=== PATIENT | female | born 1995 | race Caucasian/White ===

== ENCOUNTER 2024-12-25 06:19 | Outpatient (CLI) | payer OTHER ==
[~2024-12-25] VITALS: Ht 165.1 cm; Wt 82.0 kg
[2024-12-25] MEDS ORDERED: OVAS1POW PO (06:36)
[2024-12-25] MEDS ORDERED: PRENTAB9 PO (06:36)
[2024-12-25 06:39] VITALS: BP 132/83
[2024-12-25 08:45] LABS: APPEARANCE, URINE CLEAR (CLEAR); BACTERIA, URINE AUTO 1+ (NEGATIVE); BILIRUBIN, URINE AUTO NEGATIVE (NEGATIVE); BLOOD, URINE BLOOD NEGATIVE (NEGATIVE); GLUCOSE, URINE (UA) AUTO 1+ mg/dL (NEGATIVE); KETONE, URINE AUTO NEGATIVE (NEGATIVE); LEUKOCYTE ESTERASE, URINE AUTO NEGATIVE (NEGATIVE); NITRITE, URINE AUTO NEGATIVE (NEGATIVE); PROTEIN, URINE AUTO NEGATIVE (NEGATIVE); RBC, URINE AUTO 1 /HPF (0-3); SPECIFIC GRAVITY URINE AUTO 1.006 (1.002-1.035); SQUAMOUS EPITHELIAL CELL UR AU 0 /HPF (0-6); UROBILINOGEN, URINE AUTO 0.2 mg/dL (0.0-2.0); WBC, URINE AUTO 0 /HPF (0-3)
== END 2024-12-25 08:05 | disposition home or self-care (01) ==
LOC: M LDO 06:19
PROVIDERS: ATTEND Obstetrics & Gynecology
DX: O47.1 False labor at or after 37 completed weeks of gestation (principal); Z3A.39 39 weeks gestation of pregnancy
CPT/HCPCS: 59025; 81001; G0463

== ENCOUNTER 2024-12-25 13:24 | Inpatient (IN) | payer OTHER ==
[~2024-12-25] VITALS: Ht 165.1 cm; Wt 82.0 kg
[2024-12-25] VITALS (9 sets, daily range): BP systolic 128–176; BP diastolic 71–110; O2SAT 99
[~2024-12-25 13:24] MED LIST: OVAS1POW PO; PRENTAB9 PO
[2024-12-25] MEDS ORDERED: METHYLERGONOVINE MALEATE 0.2 MG/ML 1 ML VIAL IM ONE (13:55)
[2024-12-25] MEDS: LR 1,000 ML IV SCH (13:55)
[2024-12-25] MEDS: OXYTOCIN INJ 10UNITS/ML 1ML VIAL IV ONE ×2 (13:55→16:05)
[2024-12-25] MEDS ORDERED: METHYLERGONOVINE MALEATE 0.2 MG/ML 1 ML VIAL IM PRN (13:55)
[2024-12-25] MEDS ORDERED: TRANEXAMIC ACID INJection 1,000 MG in NS 100 ML IV PRN (13:55)
[2024-12-25] MEDS: TRANEXAMIC ACID INJection 1,000 MG in NS 100 ML IV ONE (13:55)
[2024-12-25 14:41] LABS: PLATELET COUNT, AUTOMATED 257 10^3/uL (150-450)
[2024-12-25 15:42] LABS: HIV 1&2 SCREEN NEGATIVE (NEGATIVE)
[2024-12-25 15:44] LABS: CORD GAS ABE V -3.1; CORD GAS HCO3 V 20.7 MMOL/L; CORD GAS O2 SAT V 78.7 %; CORD GAS PCO2 V 34.1 mmHg; CORD GAS PH V 7.401 UNITS; CORD GAS PO2 V 31.0 mmHg; CORD GAS SBC V 21.4 MMOL/L; CORD GAS TCO2 V 21.7 MMOL/L
[2024-12-25 15:45] LABS: CORD GAS ABE A -2.2; CORD GAS HCO3 A 21.0 MMOL/L; CORD GAS O2 SAT A 83.1 %; CORD GAS PCO2 A 32.8 mmHg; CORD GAS PH A 7.425 UNITS; CORD GAS PO2 A 33.8 mmHg; CORD GAS SBC A 22.2 MMOL/L; CORD GAS TCO2 A 22.0 MMOL/L
[2024-12-25 15:50] LABS: HEPATITIS C VIRUS ABY INDEX < 0.02 INDEX (<0.8)
[2024-12-25] MEDS: OXYTOCIN DRIP 30 UNITS in IV 1 EA IV PRN (15:52)
[2024-12-25] MEDS: OXYTOCIN INJ 10UNITS/ML 1ML VIAL IV PRN (15:53)
[2024-12-25] MEDS ORDERED: MOM 30 ML SUSPENSION UDC PO PRN (16:05)
[2024-12-25] MEDS ORDERED: RHOGAM 300MCG (1500IU) INJ IM SCH (16:05)
[2024-12-25] MEDS ORDERED: ACETAMINOPHEN 325 MG TAB PO PRN (16:05)
[2024-12-25] MEDS ORDERED: PROMETHAZINE 25 MG TAB PO PRN (16:05)
[2024-12-25] MEDS ORDERED: ANUSOL HC CREAM 30 GM TOP PRN (16:05)
[2024-12-25] MEDS: IBUPROFEN 600 MG TAB PO PRN (16:12)
[2024-12-26 06:06] LABS: PLATELET COUNT, AUTOMATED 209 10^3/uL (150-450)
[2024-12-26] MEDS: ACETAMINOPHEN 500 MG TAB PO PRN (06:08)
[2024-12-26 06:20] VITALS: BP 121/76; O2SAT 97
[2024-12-26] MEDS: PRENATAL VITAMINS CHEWABLE TABLET PO SCH (09:00)
[2024-12-26] MEDS: DOCUSATE SODIUM 100 MG CAPSULE PO PRN (17:00)
[2024-12-26 17:57] VITALS: BP_SYST 133; BP_SYST 135; BP_DIAS 79; BP_DIAS 80; O2SAT 98
[2024-12-27] MEDS ORDERED: MEASLES,MUMPS,RUBELLA VACCINE INJ (MMR-II) SC.IMMUN ONE (09:00)
== END 2024-12-26 16:00 | disposition home or self-care (01) | DRG 807 ==
LOC: M LDO 13:24 → M LDI 13:39 → M OBS 17:25
PROVIDERS: ADMIT Obstetrics & Gynecology; ATTEND Obstetrics & Gynecology
PROC: 10E0XZZ Delivery of Products of Conception, External Approach (ICD-10-PCS; principal; 2024-12-25)
PROC: 0HQ9XZZ Repair Perineum Skin, External Approach (ICD-10-PCS; 2024-12-25)
DX: O34.211 Maternal care for low transverse scar from previous cesarean delivery (principal); Z37.0 Single live birth; Z3A.39 39 weeks gestation of pregnancy; O70.0 First degree perineal laceration during delivery